=== PATIENT | male | born 1950 | race Caucasian/White ===

== ENCOUNTER → 2022-05-12 | Outpatient (CLI) | payer MEDICARE, OTHER, SELFPAY ==
--- NOTE | 2022-05-12 09:58 | US_ITS ---
STUDY: ABDOMINAL ULTRASOUND - ELASTOGRAPHY REASON FOR VISIT: Male, 71 years old. Hepatomegaly. TECHNIQUE: Liver stiffness measurements were obtained on a [employer] RS 85 ultrasound machine using a CA 1-7 probe following the SRU guidelines. 3 measurements were obtained using a 2-D-SWE method. TheIQR/M was 16 % suggesting a quality data set. TECHNICAL QUALITY: Adequate. COMPARISON: Comparison is made with prior study done earlier today. FINDINGS: Liver: Hepatomegaly. Median liver stiffness measured 13.3 kPa. US/Elastography Parenchyma/Organ IMPRESSION: Liver stiffness measures 13.3 kPa compatible with F3-F4 (Moderate to severe liver fibrosis) Metavir score. Electronically Signed: Espinoza Rodriguez MD at 10:11 EDT ,
--- NOTE | 2022-05-12 09:58 | US_ITS ---
STUDY: ABDOMINAL ULTRASOUND - RIGHT UPPER QUADRANT REASON FOR VISIT: Male, 71 years old FATTY LIVER TECHNIQUE: Ultrasound evaluation of the right upper quadrant was performed with real-time and static trent-scale imaging. TECHNICAL QUALITY: Adequate. COMPARISON: None. FINDINGS: Liver: The liver is enlarged and measures 20.1 cm. There is normal echogenicity of the liver. The bile ducts are within normal limits. There is hepatic color flow. The direction of portal flow is hepatopetal. There is no demonstrated mass lesion. Gallbladder: There is a distended gallbladder. The gallbladder wall measures 1.6 mm. There is a negative sonographic Buckley''s sign. There is no pericholecystic fluid. There are no gallstones. Common Bile Duct (C.B.D.): The common bile duct was unable to be measured due to the distended gallbladder. Pancreas: Normal size of the head, body and tail of the pancreas. There is normal echogenicity of the pancreas. There is no demonstrated pancreatic mass or cyst. Right Kidney: Normal size of the right kidney. The right kidney measures 15.2 cm x 5.7 cm x 4.9 cm. Normal renal cortex. The right cortex measures 2.2 cm. There is no demonstrated renal mass or cyst. There is no right hydronephrosis. US/Abdomen Limited IMPRESSION: Hepatomegaly. Distended gallbladder. Electronically Signed: Espinoza Rodriguez MD at 10:10 EDT ,
== END | disposition home or self-care (01) ==
LOC: US 09:55
PROVIDERS: PCP Nurse Practitioner Family; Visit Provider Internal Medicine Gastroenterology
DX: K76.0 Fatty (change of) liver, not elsewhere classified (principal)
CPT/HCPCS: 76705; 76981

== ENCOUNTER → 2022-06-23 | Outpatient (CLI) | payer MEDICARE, OTHER, SELFPAY ==
[2022-06-23 15:49] LABS: EXAGEN MAILED SPECIMEN
[2022-06-23 18:02] LABS: Absolute Lymphocyte Count 1.48 X10^3/uL (0.83-4.51); Absolute Neutrophil Count 7.7 X10^3/uL (2.0-7.7); Basophil# 0.06 X10^3/uL; Basophil% 0.6 % (0-1); Eosinophil# 0.08 X10^3/uL; Eosinophils% 0.8 % (0-5); Hematocrit 42.2 % (40-54); Lymphocyte # 1.48 X10^3/ul (0.83-4.51); Lymphocyte % 14.9 % (19-41); Mean Corp Hgb Conc 33.2 g/dL (32-36); Mean Corpuscular Hgb 29.5 pg (27.0-32.0); Mean Corpuscular Volume 88.8 fL (80-94); Mean Platelet Vol. 10.8 fl (6.2-12.0); Monocyte# 0.56 X10^3/uL; Monocyte% 5.6 % (0-10); NRBC Flagged by Analyzer 0 % (0-5); Neutrophil % 77.6 % (47-70); Platelet Count 206 K/mm3 (150-450); RBC Distribution Width CV 14.4 % (11.6-14.6); RBC Distribution Width SD 46.8 fl (35.1-43.9); Red Blood Count 4.75 M/mm3 (4.6-6.2); White Blood Count 9.9 K/mm3 (4.4-11.0)
[2022-06-23 18:18] LABS: Erythrocyte Sedimentation Rate 17 mm/hr (0-20)
[2022-06-23 18:22] LABS: Color, Urine Yellow (Yellow); Glucose, Dipstick 1000 mg/dl (Normal); Ketone-Dipstick Negative (Negative); Leukocyte Esterase-Dipstick Negative /ul (Negative); Nitrite-Dipstick Negative (Negative); Occult Blood-Urine Negative /ul (Negative); Protein-Dipstick Negative (Negative); Urine Bilirubin Dipstick Negative (Negative); Urine Clarity Sl. Cloudy (Clear); Urine Urobilinogen Normal (Normal)
[2022-06-23 18:47] LABS: Protein, Urine (Random) 12.9 mg/dL (<11.9); Protein:Creat Ratio 237 mg/g CRE (0-200)
[2022-06-23 18:56] LABS: ALB/GLOB Ratio 1.1 RATIO (0.9-2.4); AST(SGOT) 29 U/L (15-37); Alanine Aminotransfer ALT/SGPT 51 U/L (16-61); Albumin, Serum 4.1 g/dL (3.2-5.0); Alkaline Phosphatase 161 U/L (45-117); Anion Gap 7 (5-15); BUN 48 mg/dL (7-18); BUN/Creat Ratio 31.8 RATIO (10-20); CRP < 2.90 mg/L (0.0-3.0); Calcium,Total 9.7 mg/dL (8.5-10.1); Chloride 101 mmol/L (98-107); Creatinine, Serum 1.51 mg/dL (0.70-1.30); EST Glomerular Filtration Rate 48 mL/min (>60); Est Glom Filt Rate - Afr Amer 58 mL/min (>60); Globulin 3.6 g/dL (2.2-4.2); Glucose 191 mg/dL (74-106); Potassium 3.1 mmol/L (3.5-5.1); Protein, Total 7.7 g/dL (6.4-8.2); Sodium Level 134 mmol/L (136-145)
== END | disposition home or self-care (01) ==
LOC: MTLAB 14:42
PROVIDERS: PCP Nurse Practitioner Family; Referring Provider Internal Medicine Rheumatology; Visit Provider Internal Medicine Rheumatology
DX: R76.8 Other specified abnormal immunological findings in serum (principal); M19.041 Primary osteoarthritis, right hand
CPT/HCPCS: 36415; 80053; 81002; 82570; 84156; 85025; 85652; 86140

== ENCOUNTER 2023-11-30 09:04 | Outpatient (CLI) | payer MEDICARE, OTHER, SELFPAY ==
--- NOTE | 2023-11-30 09:11 | US_ITS ---
STUDY: ABDOMINAL ULTRASOUND - RIGHT UPPER QUADRANT; ELASTOGRAPHY REASON FOR VISIT: Male, 73 years old. History of cirrhosis, fatty liver. TECHNIQUE: Ultrasound evaluation of the right upper quadrant was performed with real-time and static trent-scale imaging. Point quantification shear wave elastography was performed (Regalister). TECHNICAL QUALITY: Adequate. COMPARISON: Comparison is made with prior study May 12, 2022. FINDINGS: Liver: The liver is enlarged and measures 20 3. cm. There is increased echogenicity consistent with fatty infiltration. The bile ducts are within normal limits. There is hepatic color flow. The direction of portal flow is hepatopetal. There is no demonstrated mass lesion. Median liver stiffness measured 9.5 kPa. Gallbladder: Normal distended gallbladder. The gallbladder wall measures 2.5 mm. There is a negative sonographic Buckley''s sign. There is no pericholecystic fluid. There are no gallstones. Common Bile Duct (C.B.D.): The common bile duct measures 3.5 mm. Pancreas: There is normal echogenicity of the visualized pancreas. There is no demonstrated pancreatic mass or cyst. Right Kidney: Normal size of the right kidney. The right kidney measures 14.6 cm x 6.5 cm x 5.8 cm. Normal renal cortex. The right cortex measures 2.3 cm. There is no demonstrated renal mass or cyst. There is no right hydronephrosis. US/ABD Limited w/ Elastography IMPRESSION: 1. Liver stiffness measures 9.5 kPa compatible with F2-F3 (Mild to moderate liver fibrosis) Metavir score. 2. Hepatomegaly. 3. Fatty infiltration of the liver. Electronically Signed: Espinoza Rodriguez MD at 10:55 EDT ,
[2023-11-30 10:50] LABS: Absolute Lymphocyte Count 0.91 X10^3/uL (0.83-4.51); Absolute Neutrophil Count 6.1 X10^3/uL (2.0-7.7); Basophil# 0.05 X10^3/uL; Basophil% 0.7 % (0-1); Eosinophil# 0.04 X10^3/uL; Eosinophils% 0.5 % (0-5); Hematocrit 42.1 % (40-54); Hemoglobin 13.5 g/dL (13.0-16.5); Lymphocyte # 0.91 X10^3/ul (0.83-4.51); Mean Corp Hgb Conc 32.1 g/dL (32-36); Mean Corpuscular Hgb 29.7 pg (27.0-32.0); Mean Corpuscular Volume 92.5 fL (80-94); Mean Platelet Vol. 10.2 fl (6.2-12.0); Monocyte# 0.45 X10^3/uL; NRBC Flagged by Analyzer 0 % (0-5); Neutrophil # 6.07 X10^3/uL (2.7-7.7); Neutrophil % 80.3 % (47-70); Platelet Count 161 K/mm3 (150-450); RBC Distribution Width CV 15.4 % (11.6-14.6); RBC Distribution Width SD 52.4 fl (35.1-43.9); RET-HE 29.7 pg (30-35); Red Blood Count 4.55 M/mm3 (4.6-6.2); White Blood Count 7.6 K/mm3 (4.4-11.0)
[2023-11-30 10:54] LABS: Erythrocyte Sedimentation Rate 24 mm/hr (0-20)
[2023-11-30 11:27] LABS: International Normalized Ratio 1.3; Prothrombin Time (Protime)PT. 16.5 SECONDS (11.7-14.9)
[2023-11-30 11:35] LABS: ALB/GLOB Ratio 0.8 RATIO (0.9-2.4); AST(SGOT) 42 U/L (15-37); Alanine Aminotransfer ALT/SGPT 56 U/L (16-61); Albumin, Serum 3.5 g/dL (3.2-5.0); Alkaline Phosphatase 563 U/L (45-117); Anion Gap 11 (5-15); BUN 46 mg/dL (7-18); BUN/Creat Ratio 27.9 RATIO (10-20); Chloride 97 mmol/L (98-107); Cholesterol 93 mg/dL (200); Creatinine, Serum 1.65 mg/dL (0.70-1.30); EST Glomerular Filtration Rate 43 mL/min (>60); Est Glom Filt Rate - Afr Amer 53 mL/min (>60); Globulin 4.5 g/dL (2.2-4.2); Glucose 184 mg/dL (74-106); High Density Lipoprotein 38 mg/dL; Potassium 2.8 mmol/L (3.5-5.1); Sodium Level 140 mmol/L (136-145); Triglycerides 100 mg/dL; Very Low Density Lipoprotein 20 mg/dL (5-40)
[2023-11-30 11:47] LABS: Ferritin 116 ng/mL (26-388); Iron 61 ug/dL (65-175); Iron Binding Capacity,Total 372 ug/dL (250-450); LDH 244 U/L (87-241)
[2023-11-30 13:46] LABS: Microalbumin,Random Urine 13.3 mg/L (NO RANGE EST.); Microalbumin:Creatinine Ratio 59.6 mg/g CRE (<30 mg/g CRE)
[2023-12-01 04:08] LABS: Thyroid Peroxidase AB < 9 IU/mL (0-34)
[2023-12-01 16:10] LABS: Anti-Centromere B Ab <0.2 AI (0.0-0.9); Anti-Chromatin <0.2 AI (0.0-0.9); Anti-Jo <0.2 AI (0.0-0.9); Anti-Mitochondrial AB <20.0 Units (0.0-20.0); Anti-Scleroderma-70 AB <0.2 AI (0.0-0.9); Anti-dsDNA Ab 7 IU/mL (0-9); RNP Ab 0.6 AI (0.0-0.9); SJOGREN'S Anti-SS-A test < 0.2 AI (0.0-0.9); SJOGREN'S Anti-SS-B test < 0.2 AI (0.0-0.9); Smith Ab <0.2 AI (0.0-0.9)
[2023-12-02 15:10] LABS: AFP, Tumor Marker < 1.8 ng/mL (0.0-8.4); Albumin 3.3 g/dL (2.9-4.4); Alpha-1-Globulins 0.5 g/dL (0.0-0.4); Alpha-2-Globulins 1.1 g/dL (0.4-1.0); Anti-Smooth Muscle ABS 11 Units (0-19); Ceruloplasmin 50.6 mg/dL (16.0-31.0); Copper, Serum or Plasma 235 ug/dL (69-132); Cytoplasmic Ab (C-ANCA) <1:20 titer (Neg:<1:20); Endomysial Antibody IgA Negative (Negative); HEPATITIS B SURFACE AG Negative (Negative); Haptoglobin 274 mg/dL (34-355); Hep C Antibodies Non Reactive (Non Reactive); Hepatitis A IgM Antibody Negative (Negative); Hepatitis B Core AB IgM Negative (Negative); Immunoglobulin A 204 mg/dL (61-437); Immunoglobulin G 1105 mg/dL (603-1613); Immunoglobulin M 101 mg/dL (15-143); PROEL- TOTAL PROTEIN 7.1 g/dL (6.0-8.5); Perinuclear Ab (P-ANCA) <1:20 titer (Neg:<1:20); t-Transglutaminase IgA <2 U/mL (0-3)
== END 2023-11-30 23:59 | disposition home or self-care (01) ==
PROVIDERS: Nurse Practitioner Family; PCP Nurse Practitioner Family; Referring Provider Internal Medicine Gastroenterology; Visit Provider Internal Medicine Gastroenterology
DX: D64.9 Anemia, unspecified (principal); K74.60 Unspecified cirrhosis of liver; E11.65 Type 2 diabetes mellitus with hyperglycemia; Z79.4 Long term (current) use of insulin; K74.00 Hepatic fibrosis, unspecified; R79.89 Other specified abnormal findings of blood chemistry; E03.9 Hypothyroidism, unspecified; R74.8 Abnormal levels of other serum enzymes
CPT/HCPCS: 36415; 76705; 76981; 80053; 80061; 80074; 82043; 82105; 82140; 82390; 82525; 82570; 82728; 82784; 83010; 83516; 83540; 83550; 83615; 84165; 84443; 85025; 85045; 85610; 85652; 86140; 86225; 86235; 86255; 86256; 86334; 86376

== ENCOUNTER → 2023-12-02 | Outpatient (CLI) | payer MEDICARE, OTHER, SELFPAY ==
[2023-12-02] VITALS (12 sets, daily range): BP systolic 82–119; BP diastolic 47–71; PULSE 80–84; RESP 13–20; TEMP 36.3; O2SAT 92–96; BMI 36.6
--- NOTE | 2023-12-02 | LIVB_PTH ---
PATIENT: COLLEEN PHILLIPS LOC: [place] U#:[id number] AGE/SX: 73/M ROOM: RE12/02/[address]: Dr. Dionicio Varela DO : 1950 BED: DIS: 12/02/2023 SPEC #: [id number] RECD: 12/02/23 09:11 STATUS: GLORIA JULY #: [id number] FLO: 12/02/23 00:[address]: Dionicio Varela DEPT: SURGICAL PATHOLOGY RECD BY: Margret Tello ENTERED: 12/02/23 10:21 SP TYPE: LIVER BX OTHR DR: Thania Badillo, [employer] IN ERGONOMICS AND SAFETY-C Tissues: Liver, NOS Procedures: PAS with Diastase (control) Trichrome (control) Special Stain Group I PAS Stain (control) Surgery Specimen Level V Retic (control) Iron Stain (control) HEADER OPERATION: CT guided liver biopsy PRE-OP DIAGNOSIS: Cirrhosis TISSUE SUBMITTED: 18 gauge x 4 cores MICROSCOPIC DIAGNOSIS Liver, CT guided core biopsy: Cirrhosis. Chronic hepatitis, Grade 3 (Knodell scoring system for chronic hepatitis). See comment. 12/03/2023 COMMENT Sections show moderate limiting plate necrosis with focal severe single cell necrosis. Trichrome stain reveals broad band fibrosis consistent with cirrhosis and focal chicken wire fibrosis. Reticulin shanna reveals a normal hepatic parenchymal architecture. Iron stain does not reveal accumulation of intraparenchymal iron. PAS and PASD stains do not reveal accumulation of abnormal proteins. All matched controls are appropriate. Case has been reviewed in consultation with Dr. Alonso who concurs with the above diagnosis. IDC:GILLES MICROSCOPIC DESCRIPTION Slides are reviewed. GROSS DESCRIPTION Received is one container labeled with the patient's name and not further designated. The specimen consists of multiple elongated pieces of lewis soft tissue that in aggregate measure 1.8 x 0.3 x 0.1 cm. The specimen is totally submitted in one cassette. 12/02/2023 TC:[address] [facility] [address] [facility]:[id number]
[2023-12-02 08:00] LABS: Platelet Count 175 K/mm3 (150-450)
[2023-12-02 08:14] LABS: International Normalized Ratio 1.3; Prothrombin Time (Protime)PT. 16.2 SECONDS (11.7-14.9)
[2023-12-02 08:15] LABS: Partial Thromboplast Time 40.1 Seconds (24.1-36.2)
[2023-12-02] MEDS: Midazolam 2 MG/2 ML Syringe IV (08:47)
[2023-12-02] MEDS: fentaNYL 100 MCG/2 ML Ampul IV (08:47)
[2023-12-02] MEDS: 0.9% Normal Saline (250mL Bag) 250 ML 15 ML IV (08:48)
--- NOTE | 2023-12-02 10:02 | PCM.OP.PRO ---
Procedure Report Date of Procedure: 12/02/23 Assessment & Plan Assessment/Plan (1) Cirrhosis: QUALIFIERS: Hepatic cirrhosis type: unspecified hepatic cirrhosis Ascites presence: without ascites Qualified Code(s): K74.60 - Unspecified cirrhosis of liver PLAN: PROCEDURE: CT DIRECTED CORE LIVER BIOPSY ORDERING PROVIDER: Dr. Varela INDICATION: Male, 73 years old. Liver cirrhosis. PROVIDER: SPENCER Aguilera CONSENT: Written informed consent was obtained having explained the risks, benefits and alternatives in detail with the patient who accepted the risks and agreed to proceed. Laboratory review and clinical assessment was performed. PRE-PROCEDURE SEDATION ASSESSMENT: Current history and physical dictated by referring provider and reviewed. No clinical changes since date of exam. Patient has a Mallampati Score of Class 2 and ASA Class of 3. PROCEDURAL SEDATION PROTOCOL: The Drugs used were: 1 mg Versed, IV, and 50 mcg Fentanyl, IV. The sedation time was: 17 minutes, starting at 8:47 AM and terminated at 9:04 AM. The procedural sedation protocol was independently monitored by the department nurse. RADIATION DOSAGE (If Supplied By Facility): CTDIvol = 25.76 mGy, DLP = 1051.04 mGycm Individualized dose optimization techniques were used for this CT. TECHNIQUE The patient was placed in a supine position. Using CT image guidance with image documentation, a suitable location in the right lobe of the liver was identified. The skin surface was prepped with chlorhexidine and draped in a sterile fashion. 2% lidocaine was used for local anesthesia. Using an anterior approach, puncture of the liver was uneventful with an 18-gauge core needle system. 3, 18-gauge core samples were obtained, and submitted in formalin to the pathologist for further assessment. The needle was removed. An occlusive sterile dressing was applied. Patient tolerated the procedure well, and returned to the holding bay for nursing monitoring. IMPRESSION: CT directed core needle biopsy of the liver, using CT image guidance with image documentation as described. Procedural Sedation protocol utilized with independent monitoring. Procedures Radiology Radiology CT Procedures: 71452 Biopsy Liver Multi Select Codes Radiology Radiology CT Procedures: [id number] CT guidance parenchymal tissue
== END | disposition home or self-care (01) ==
PROVIDERS: Nurse Practitioner Acute Care; PCP Nurse Practitioner Family; Referring Provider Internal Medicine Gastroenterology; Visit Provider Internal Medicine Gastroenterology
DX: K74.60 Unspecified cirrhosis of liver (principal)
CPT/HCPCS: 47000; 36415; 77012; 85049; 85610; 85730; 88307; 88312; 99156; J7050; A4216

== ENCOUNTER 2023-12-14 08:55 | Day surgery (SDC) | payer MEDICARE, OTHER, SELFPAY ==
--- NOTE | 2023-12-11 16:46 | NURSING ---
pt called and given new arrival time of 914 for thursday and he voices understanding
[2023-12-14] VITALS (8 sets, daily range): BP systolic 83–107; BP diastolic 56–72; PULSE 80–87; RESP 16–18; TEMP 36.3–37.1; O2SAT 95–100; BMI 35.6
--- NOTE | 2023-12-14 09:29 | PRE.ANES_ITS ---
ASA Classification* ASA Classification ASA Classification: 3 Assessment & Plan Anesthesia* Anesthesia Assessment Anesthesia Assessment: Discussed sedation and/or anesthesia options, risks, benefits, and alternatives with patient/parents/legal guardian/POA. Questions invited. The patient/parents/legal guardian/POA seems to understand and agrees to proceed with anesthesia plan. Reviewed the physical assessment, medical history, allergy history and patient home medications list prior to surgery/procedure/anesthetic and documented any changes. Performed airway and anesthesia risk assessments. Anesthesia Type Anesthesia Type: MAC Anesthesia Focused Assessment* Airway Assessment Mouth opens: >3 cm Mallampati Score: II Focused Labs Anesthesia Preop lab: CBC WBC 7.6 K/mm3 (4.4-11.0) 11/30/23 10:21 RBC 4.55 M/mm3 (4.6-6.2) L 11/30/23 10:21 Hgb 13.5 g/dL (13.0-16.5) 11/30/23 10:21 Hct 42.1 % (40-54) 11/30/23 10:21 Plt Count 175 K/mm3 (150-450) 12/02/23 07:43 CHEMISTRY Potassium 2.8 mmol/L (3.5-5.1) L 11/30/23 10:27 Sodium 140 mmol/L (136-145) 11/30/23 10:27 BUN 46 mg/dL (7-18) H 11/30/23 10:27 Creatinine 1.65 mg/dL (0.70-1.30) H 11/30/23 10:27 Glucose 184 mg/dL (74-106) H 11/30/23 10:27 TSH 4.640 uIU/mL (0.358-3.740) H 11/30/23 10:27 COAG PT 16.2 SECONDS (11.7-14.9) H 12/02/23 07:43 Pre-Assessment Diagnosis/Proposed Procedure Planned Operative Procedure(s): CSCOPE Anesthesia History Anesthesia History - crimp setter: Anesthesia History - crimp setter Hx Hospitalization Yes: 10/2022 PNEUMONIA,CHF. 12/11/23 13:35 12/2022 BLOOD INFECTION Any Problems With Anesthesia No 12/11/23 13:35 Cholinesterase deficiency No 12/11/23 13:35 You/Your Family Experience No 12/11/23 13:35 fever (hyperthermia) with Relationship Recent Exposure to Contagious Disease Does patient have nerve No 12/11/23 13:35 stimulator Patient instructed to have device shut off --Does patient have Pacemaker or ICD? When Was Last Pacemaker Check QUESTION #4 FULL TEXT: You/Your Family Experience fever (hyperthermia) with Anesthesia Last Oral Intake Last Oral intake: Last Oral Intake NPO since Meds taken in AM with sips of water? Meds patient instructed to take am of surgery PONV PONV - crimp setter: PONV - crimp setter Female No 12/11/23 13:35 HX of Motion Sickness No 12/11/23 13:35 HX of N/V After Surgery No 12/11/23 13:35 Non-Smoker Yes 12/11/23 13:35 Duration of Surgery greater No 12/11/23 13:35 than 60 minutes Number of Risk Factors 1 12/11/23 13:35 PONV Score Low Risk 12/11/23 13:35 Height & Weight Height & Weight: Anesthesia: Height & Weight Height 6 ft 12/02/23 08:12 Respiratory Assessment Respiratory Assessment - crimp setter: Respiratory Tract Infection Hx - crimp setter Hx Respiratory Tract Infection No 12/11/23 13:35 STOP Sleep Apnea STOP Sleep Apnea - crimp setter: STOP Sleep Apnea - crimp setter Hx Hypertension Yes: CONTROLLED WITH MED/OCC 12/11/23 13:35 HYPOTENSION Hx Sleep Apnea Yes 12/11/23 13:35 CPAP Yes: NONCOMPLIANT 12/11/23 13:35 BIPAP No 12/11/23 13:35 Do you snore loudly (louder than talking or can be heard Do you often feel tired/ fatigued/ sleepy during daytime? Has anyone observed you stop breathing during sleep? STOP Results Positive 12/11/23 13:35 QUESTION #5 FULL TEXT : Do you snore loudly (louder than talking or can be heard through closed doors)? Tobacco Use History Tobacco Use History - crimp setter: Tobacco Use History - crimp setter Tobacco Use Smoking Status Never smoker 12/11/23 13:35 Hx Tobacco Use No 12/11/23 13:35 Years Smoking Packs Smoked per Day Smoking Cessation Date was within the last 15 years Hx Smoking Cessation Date Hx Smoking Cessation Counseling Hematologic Medial History Hematologic Hx - crimp setter: Hematologic Medical Hx - leadite heater Hx of Blood Transfusion No 12/11/23 13:35 Hx of Transfusion in last 3 No 12/11/23 13:35 Months Date of Last Transfusion (if within last 3 months) Ever experience any problems No 12/11/23 13:35 with transfusion(s)? Specify any problems Hx of Preganancy in last 3 N/A 12/11/23 13:35 Months Nurse Filling Out Transfusion DSCHRIBER 12/11/23 13:35 & Questions: Date: 12/11/23 12/11/23 13:35 Time: 13:37 12/11/23 13:35 Patient unable to answer at this time (ie. confused, unrespo /Reproduction History /Reproductive History - crimp setter: /Reproductive Hx- crimp setter Hx Now No 12/11/23 13:35 Gestational Age (in weeks): EDC: Hx Hx Para Hx Section SAB No 12/11/23 13:35 [facility] Medical History Loss of hearing Wears glasses Skin thinning Insulin dependent diabetes mellitus Arthritis High cholesterol Pulmonary embolism Injury of head and neck Dietary restriction History of hiatal hernia Heartburn Non-smoker CPAP (continuous positive airway pressure) dependence Shortness of breath on exertion Neuropathy History of edema Hypertension History of heart attack History of atrial fibrillation History of echocardiogram History of stress test Cardiology follow-up encounter History of pacemaker Diabetes mellitus CHF (congestive heart failure) Colon cancer Home Medications ?Medication ?Instructions ?Recorded ?Last Taken ?Type cholecalciferol (vitamin D3) 125 125 mcg PO DAILY 06/02/22 12/02/23 History mcg (5,000 unit) capsule multivitamin (Daily Multi-Vitamin 1 tab PO DAILY 06/02/22 12/02/23 History tablet) apixaban 5 mg tablet (Eliquis) 5 mg PO BID 04/20/23 12/10/23 History empagliflozin 25 mg tablet 25 mg PO DAILY #90 tabs 04/20/23 12/02/23 Rx (Jardiance) atorvastatin 20 mg tablet 20 mg PO QDAY 07/20/23 12/01/23 History bumetanide 1 mg tablet 2 mg PO BID 07/20/23 12/02/23 History dofetilide 250 mcg capsule 250 mcg PO BID 07/20/23 12/02/23 History ezetimibe 10 mg tablet 10 mg PO DAILY 07/20/23 12/01/23 History gabapentin 100 mg capsule 100 mg PO DAILY 07/20/23 12/02/23 History insulin aspart U-100 100 unit/mL 20 unit (0.2 mL) subcut TID #18 mL 07/20/23 12/01/23 Rx (3 mL) subcutaneous pen (Novolog FlexPen U-100 Insulin aspart) potassium chloride 20 mEq 10 meq PO QDAY 07/20/23 12/01/23 History tablet,extended release bisoprolol fumarate 5 mg tablet 2.5 mg PO DAILY 10/19/23 12/01/23 History metolazone 5 mg tablet 5 mg PO QWEEK 11/11/23 Unknown History glimepiride 4 mg tablet 4 mg PO BID #180 tabs 12/07/23 Unknown Rx insulin glargine U-300 conc 300 80 unit subcut QHS 12/11/23 Unknown History unit/mL (3 mL) subcutaneous pen (Toujeo Max U-300 SoloStar) Allergy/AdvReac Type Severity Reaction Status Date / Time No Known Allergies Allergy Verified 12/11/23 13:29 Family History Other Breast cancer Diabetes Myocardial infarction Respiratory disease Seizures Surgical History History of liver biopsy History of cardiac radiofrequency ablation History of cardiac catheterization History of coronary artery stent placement Hx of colonoscopy History of colectomy History of open heart surgery Social History Smoking Status: Never smoker alcohol intake: never substance use type: does not use what type of physical activity do you participate in: none Review of Systems (Anesthesia) ROS Narrative System reviewed and no additional complaints, except as documented.
--- NOTE | 2023-12-14 10:10 | PCM.HP.BLA ---
History and Physical Date of Admission: 12/14/23 COLLEEN PHILLIPS is a 73 M who presents to the office today for initial consult. *[facility] established 11.11.23 pt reports a hx of colon cancer. States that he had a colonoscopy 3 years ago had some polyps removed, and was told due to his hx of colon cancer he would need yearly colonoscopies, but was not able to get rescheduled with the facility who he had previously been seeing. Pt reports daily bowel movements, denies blood in the stool. Pt reports that his [employer] and PCP also wanted pt referred to GI for elevated liver enzymes. He also has a history of elevated liver enzymes. His AST and ALT have ranged from the 200s to 300s. He is never drinking alcohol. He has no family history of psoriasis. He has had diabetes for over 20 years. His diabetes has led to coronary artery disease and ventricular arrhythmias status post [place] on antiplatelet therapy. He has been having some bloating and intermittent nausea. He denies any chest pain or shortness of breath. ROS Const Constitutional: No fatigue, fever(s) or weight change ENT ENT: No difficulty swallowing Gastro GI: Positive for bloating, change in bowel habits, constipation, diarrhea and excessive flatus; No abdominal pain, belching, change in stool character, coffee ground emesis, cramping, heartburn, difficulty swallowing, feeling full early, incontinent of stools, Vomiting blood/hematemesis, Blood in stool, loose stools, Black,tarry stools, nausea/dyspepsia, pain with swallowing, vomiting or other Musc Musculoskeletal: Positive for abnormal gait and Arthritis; No joint pain Skin Skin: Positive for dry skin and itchy eyes; No yellowing of the eye Neuro Neurology: Positive for abnormal gait Psych Psychiatric: No anxiety and No depression Endo Endocrine: No fatigue or weight change Aller/Imm Allergy/Immunologic: Positive for itchy eyes Mitchel/Lymp Hematologic/Lymphatic: Positive for easy bleeding and easy bruising Exam Const General: cooperative, healthy appearing, comfortable and no acute distress Nutritional Appearance: obese Orientation: alert, awake and oriented x3 HENMT Head: normal to inspection Ears: hearing grossly normal bilaterally Nose: external nose normal Face and sinus: normal facial exam Eyes General: appearance normal, both eyes and all related structures Alignment and Position: alignment normal Sclera: sclerae normal Neck Neck: normal visual inspection Carotids: normal carotid upstroke Chest Chest palpation & inspection: normal inspection of the chest Resp Effort & Inspection: normal respiratory effort, able to speak in complete sentences, symmetric chest movement, normal respiratory pattern, no audible wheezes and no cough Auscultation: Bilateral: Crackles (bases) Cardio Rate: regular rate Rhythm: regular rhythm Heart Sounds: S1 normal and S2 normal Bruits: no carotid bruits GI Inspection: normal to inspection and obesity Musc Cervical Spine: normal cervical lordosis Thoracic/Lumbar Spine: thoracic and lumbar spine normal to inspection Skin General: no rashes or lesions noted Lesions: no lesions Rashes: no rashes Trauma: no lacerations or abrasions Wounds: no wounds Neuro General: patient alert, patient awake and patient oriented x3 Cognition: normal cognition Speech: speech normal Gait: normal gait Extrem General: normal to inspection and pedal edema bilaterally Location: of the ankle Severity: pitting and 2+ Psych Appearance: grossly normal Mental Status: mental status grossly normal Mood: congruent mood Affect: normal affect Speech and Movement: speech and movement normal Attitude: cooperative Thought Process: normal Thought Content: normal Judgment: judgment good Assessment and Plan Assessment and Plan (1) Liver fibrosis: Status: Acute Plan: Possible underlying fibrosis/cirrhosis secondary to nonalcoholic steatohepatitis likely contributing to his cardiovascular disease. Recommend colonoscopy for removal of adenomatous polyp. He will also need LFTs, CBC, INR, ferritin, haptoglobin, TIBC, transferrin. I suspect that his disease does come from [facility] but we will do o do our due diligence. He will also need a liver biopsy after he completes biochemical workup (2) Cirrhosis: Status: Acute (3) Screen for colon cancer: Status: Acute Plan: He has adenomatous polyp that is very flat and needs to be removed endoscopically. He was explained alternatives, risk, benefits include not withstanding bleeding, infection, sepsis, perforation, need for emergent urgent . He will have an ASA of 3. (4) Elevated liver enzymes: Status: Chronic Orders: Orders CBC W/Diff, Automated Today D64.9 - Anemia, unspecified, K74.00 - Hepatic fibrosis, unspecified, K74.60 - Unspecified cirrhosis of liver Ferritin Today D64.9 - Anemia, unspecified, K74.00 - Hepatic fibrosis, unspecified, K74.60 - Unspecified cirrhosis of liver DEEPTI + Protein Elect, Serum Today K74.00 - Hepatic fibrosis, unspecified, K74.60 - Unspecified cirrhosis of liver Iron Binding Capacity,Total Today D64.9 - Anemia, unspecified, K74.00 - Hepatic fibrosis, unspecified, K74.60 - Unspecified cirrhosis of liver Iron Today D64.9 - Anemia, unspecified, K74.00 - Hepatic fibrosis, unspecified, K74.60 - Unspecified cirrhosis of liver Retic Panel Count Today K74.00 - Hepatic fibrosis, unspecified, K74.60 - Unspecified cirrhosis of liver Celiac Disease Profile Today K74.00 - Hepatic fibrosis, unspecified, K74.60 - Unspecified cirrhosis of liver LDH Today K74.00 - Hepatic fibrosis, unspecified, K74.60 - Unspecified cirrhosis of liver Haptoglobin Today K74.00 - Hepatic fibrosis, unspecified, K74.60 - Unspecified cirrhosis of liver Hepatitis Panel Acute Today K74.00 - Hepatic fibrosis, unspecified, K74.60 - Unspecified cirrhosis of liver ABD Limited w/ Elastography Today K74.00 - Hepatic fibrosis, unspecified, K74.60 - Unspecified cirrhosis of liver AFP, Tumor Marker Today K74.00 - Hepatic fibrosis, unspecified, K74.60 - Unspecified cirrhosis of liver Ammonia Today K74.00 - Hepatic fibrosis, unspecified, K74.60 - Unspecified cirrhosis of liver ONEIDA Comprehensive Panel Today K74.00 - Hepatic fibrosis, unspecified, K74.60 - Unspecified cirrhosis of liver ANCA Today K74.00 - Hepatic fibrosis, unspecified, K74.60 - Unspecified cirrhosis of liver Anti-Mitochondrial AB Today K74.00 - Hepatic fibrosis, unspecified, K74.60 - Unspecified cirrhosis of liver Anti-Smooth Muscle ABS Today K74.00 - Hepatic fibrosis, unspecified, K74.60 - Unspecified cirrhosis of liver Ceruloplasmin Today K74.00 - Hepatic fibrosis, unspecified, K74.60 - Unspecified cirrhosis of liver Copper, Serum or Plasma Today K74.00 - Hepatic fibrosis, unspecified, K74.60 - Unspecified cirrhosis of liver CRP Today K74.00 - Hepatic fibrosis, unspecified, K74.60 - Unspecified cirrhosis of liver Erythrocyte Sed Rate Today K74.00 - Hepatic fibrosis, unspecified, K74.60 - Unspecified cirrhosis of liver Prothrombin Time w/INR Today K74.00 - Hepatic fibrosis, unspecified, K74.60 - Unspecified cirrhosis of liver Biopsy/Inj or Needle Placement Today K74.60 - Unspecified cirrhosis of liver I have examined the patient and the H&P has been reviewed. There are no clinical changes since date of exam.
--- NOTE | 2023-12-14 10:15 | COLBX_PTH ---
PATIENT: COLLEEN PHILLIPS LOC: EN U#:[id number] AGE/SX: 73/M ROOM: RE12/14/[address]: Dr. Dionicio Varela DO : 1950 BED: DIS: 12/14/2023 SPEC #: [id number] RECD: 12/14/23 13:40 STATUS: GLORIA JULY #: [id number] FLO: 12/14/23 10:[address]: Dionicio Varela DEPT: SURGICAL PATHOLOGY RECD BY: Margret Tello ENTERED: 12/14/23 14:11 SP TYPE: COLON BX OTHR DR: Thania Badillo, FILM RENTAL CLERK-C Tissues: A - Transverse colon B - Ascending colon Procedures: Surgery Specimen Level IV HEADER OPERATION: Colonoscopy, polypectomy with cautery PRE-OP DIAGNOSIS: Colon screening TISSUE SUBMITTED: A- Transverse colon polyp, B- Ascending colon polyp MICROSCOPIC DIAGNOSIS A. Transverse colon polyp, polypectomy: Fragments of tubulovillous adenoma. B. Ascending colon polyp, polypectomy: Tubular adenoma. . 12/15/2023 MICROSCOPIC DESCRIPTION Slides are reviewed. GROSS DESCRIPTION A. Received in fixative is one container labeled with the patient's name and designated Transverse colon polyp. The specimen consists of two lewis-pink polyps measuring 1.0 x 0.7 x 0.5cm and 1.5 x 1.2 x 1.0cm. Apparent bases of both polyps are inked. Smaller polyp is bisected, and larger polyp is serially sectioned. Also present in the container are multiple fragments of lewis soft tissue measuring in aggregate 2.5 x 1.0 x 0.1cm. The entire specimen is submitted in two cassettes. 1- smaller polyp and small fragments, 2- serially sectioned large polyp. B. Received in fixative is one container labeled with the patient's name and designated Ascending colon polyp. The specimen consists of a pink-red polyp measuring 1.2 x 0.5 x 0.5 cm. The presumed base is inked. The polyp is bisected and submitted entirely in one cassette. CPT:28729z1 . 12/14/2023 TC:1
--- NOTE | 2023-12-14 11:12 | PCM.POST.ANE ---
Anesthesia: Postop Eval I Current Vital Signs Temperature: 97.9 F Pulse Rate: 82 Blood Pressure: 100/72 Respiratory Rate: 16 Pulse Ox: 100 Oxygen Delivery Method: Room Air Assessment Airway patent: Yes Spontaneous unlabored respirations: Yes Mental status: Awake and Calm nausea: No Vomiting: No Anesthesia Complication: No Fluid Hydration Crystalloid volume administer (ml): 30 Total IV fluid infused: 30 Progress Note Anesthesia document: Postop Eval 1 completed: Yes
--- NOTE | 2023-12-14 11:13 | OP.COLON_ITS ---
Patient Name: Omi Chavez Procedure Date: 12/14/2023 10:36 AM Date of : 1950 Age: 73 Procedure: Colonoscopy Indications: High risk colon cancer surveillance: Personal history of colonic polyps Providers: Dionicio Varela DO Medicines: Monitored Anesthesia Care Patient Profile: This is a 73 year old male. Refer to note in patient chart for documentation of history and physical. Last Colonoscopy: within the past 3 years. Complications: No immediate complications. Procedure: Pre-Anesthesia Assessment: - Prior to the procedure, a History and Physical was performed, and patient medications and allergies were reviewed. The patient is competent. The risks and benefits of the procedure and the sedation options and risks were discussed with the patient. All questions were answered and informed consent was obtained. Patient identification and proposed procedure were verified by the physician in the pre-procedure area. Mental Status Examination: alert and oriented. Airway Examination: normal oropharyngeal airway and neck mobility. Respiratory Examination: clear to auscultation. CV Examination: normal. Prophylactic Antibiotics: The patient does not require prophylactic antibiotics. Prior Anticoagulants: The patient has taken no anticoagulant or antiplatelet agents. ASA Grade Assessment: IV - A patient with severe systemic disease that is a constant threat to life. After reviewing the risks and benefits, the patient was deemed in satisfactory condition to undergo the procedure. The anesthesia plan was to use monitored anesthesia care (MAC). Immediately prior to administration of medications, the patient was re-assessed for adequacy to receive sedatives. The heart rate, respiratory rate, oxygen saturations, blood pressure, adequacy of pulmonary ventilation, and response to care were monitored throughout the procedure. The physical status of the patient was re-assessed after the procedure. After I obtained informed consent, the scope was passed under direct vision. Throughout the procedure, the patient's blood pressure, pulse, and oxygen saturations were monitored continuously. The Colonoscope was introduced through the anus and advanced to the cecum, identified by appendiceal orifice and ileocecal valve. The colonoscopy was performed without difficulty. The patient tolerated the procedure well. The quality of the bowel preparation was adequate. The ileocecal valve, appendiceal orifice, and rectum were photographed. Scope In: 10:47:42 AM Scope Withdrawal Time 0 hours 5 minutes 23 seconds Scope Out: 11:03:01 AM Total Procedure Duration Time 0 hours 15 minutes 19 seconds Findings: The perianal and digital rectal examinations were normal. Two sessile polyps were found in the splenic flexure and ascending colon. The polyps were 1 to 2 mm in size. These polyps were removed with a hot snare. Resection and retrieval were complete. Verification of patient identification for the specimen was done. Estimated blood loss was minimal. A tattoo was seen at the splenic flexure. The tattoo site appeared normal. Multiple small and large-mouthed diverticula were found in the recto-sigmoid colon, sigmoid colon and descending colon. Impression: - Two 1 to 2 mm polyps at the splenic flexure and in the ascending colon, removed with a hot snare. Resected and retrieved. - A tattoo was seen at the splenic flexure. The tattoo site appeared normal. - Diverticulosis in the recto-sigmoid colon, in the sigmoid colon and in the descending colon. Recommendation: - Discharge patient to home. - Resume previous diet. - Continue present medications. - Await pathology results. - Repeat colonoscopy in 1 year for surveillance. Procedure Code(s): --- Professional --- 64763, Colonoscopy, flexible; with removal of tumor(s), polyp(s), or other lesion(s) by snare technique CPT copyright 2021 [employer]. All rights reserved. The codes documented in this report are preliminary and upon medical record coder review may be revised to meet current compliance requirements. Dionicio Varela DO 12/14/2023 11:13:12 AM This report has been signed electronically. Number of Addenda: 0 Note Initiated On: 12/14/2023 10:36 AM
--- NOTE | 2023-12-14 11:14 | OP.CCLET_ITS ---
12/14/2023 Thania Badillo Re : Colonoscopy procedure for Omi Badillo This procedure was performed on Thursday, December 14, 2023. My impressions and recommendations are as follows: Impressions : - Two 1 to 2 mm polyps at the splenic flexure and in the ascending colon, removed with a hot snare. Resected and retrieved. - A tattoo was seen at the splenic flexure. The tattoo site appeared normal. - Diverticulosis in the recto-sigmoid colon, in the sigmoid colon and in the descending colon. Recommendations : - Discharge patient to home. - Resume previous diet. - Continue present medications. - Await pathology results. - Repeat colonoscopy in 1 year for surveillance. My findings are described in the full procedure note, which is enclosed. If I can be of further assistance, please feel free to contact me at . Sincerely, Dionicio Varela, 12/14/2023 11:13:12 AM This report has been signed electronically.
--- NOTE | 2023-12-14 16:38 | PCM.POSTANE2 ---
Anesthesia Postop Eval I Sum Postop Eval Completion status Anesthesia document: Postop Eval 1 completed: Yes Anesthesia Postop Eval I Summary Anesthesia Postop Eval I Summary: Anesthesia Postop Eval I: Assessment Summary Airway patent Yes 12/14/23 11:13 [email or web address] Spontaneous unlabored Yes 12/14/23 11:13 [email or web address] respirations Mental status Awake,Calm 12/14/23 11:13 [email or web address] nausea No 12/14/23 11:13 [email or web address] Vomiting No 12/14/23 11:13 [email or web address] Anesthesia Postop Eval I: Fluid Summary Crystalloid volume administer 30 12/14/23 11:13 [email or web address] (ml) Colloids volume administered ( ml) Blood Product volume administered (ml) Total IV fluid infused 30 12/14/23 11:13 [email or web address] Anesthesia Postop Eval I: Summary Notes Anesthesia Complication No 12/14/23 11:13 [email or web address] Anesthesia Complication Comment: Post-operative progress note Anesthesia: Postop Eval II Evaluation Mental status: Awake and Calm Pain Level: 0 nausea: No Vomiting: No Complications Anesthesia Complication: No
== END 2023-12-14 11:53 | disposition home or self-care (01) ==
LOC: EN 08:57 → AC 09:51
PROVIDERS: PCP Nurse Practitioner Family; Referring Provider Nurse Practitioner Family; Visit Provider Internal Medicine Gastroenterology
PROC: 0DJD8ZZ Inspection of Lower Intestinal Tract, Via Natural or Artificial Opening Endoscopic (ICD-10-PCS; CPT 45378; principal; 2023-12-14 10:10)
DX: Z12.11 Encounter for screening for malignant neoplasm of colon (principal); K74.60 Unspecified cirrhosis of liver; Z79.4 Long term (current) use of insulin; E11.9 Type 2 diabetes mellitus without complications; D12.2 Benign neoplasm of ascending colon; D12.3 Benign neoplasm of transverse colon; K57.30 Diverticulosis of large intestine without perforation or abscess without bleeding; I25.10 Atherosclerotic heart disease of native coronary artery without angina pectoris; K74.00 Hepatic fibrosis, unspecified; D64.9 Anemia, unspecified; Z79.01 Long term (current) use of anticoagulants; Z79.84 Long term (current) use of oral hypoglycemic drugs; Z79.899 Other long term (current) drug therapy; Z85.038 Personal history of other malignant neoplasm of large intestine
CPT/HCPCS: 45385; 88305; A4216; J2405